=== PATIENT | female | born 1975 | race Caucasian/White ===

== ENCOUNTER → 2016-07-26 22:09 | Emergency (ER) | payer MEDICAID ==
[~2016-07-26] VITALS: Ht 157.5 cm; Wt 49.0 kg
[~2016-07-26 22:09] MED LIST: IBUP-232 PO; PERC5TAB12 PO; ROBA750T PO
[2016-07-26 22:12] VITALS: BP 141/89; PULSE 84; RESP 16; TEMP 97.7; O2SAT 99
== END | disposition left against medical advice (07) ==
LOC: NED 22:09
DX: R51 Headache (principal)
CPT/HCPCS: 99281

== ENCOUNTER 2016-07-26 22:49 | Emergency (ER) | payer MEDICAID ==
[~2016-07-26] VITALS: Ht 157.5 cm; Wt 46.6 kg
[~2016-07-26 22:49] MED LIST changes: -IBUP-232 PO; -ROBA750T PO
[2016-07-26 23:02] VITALS: BP 122/89; PULSE 72; RESP 16; TEMP 97.7; O2SAT 99
[2016-07-27] MEDS ORDERED: SODIUM CHLORIDE 0.9% FLUSH 10 ML FLUSH IVF PRN (00:15)
[2016-07-27 00:22] VITALS: RESP 18; O2SAT 97
[2016-07-27 00:26] LABS: AUTOMATED NEUTROPHIL # 5.1 TH/MM3 (1.8-7.7); BASOPHIL # 0.1 TH/MM3 (0-0.2); BASOPHIL % 0.9 % (0.0-2.0); EOSINOPHIL # 0.4 TH/MM3 (0-0.4); EOSINOPHIL % 4.1 % (0.0-4.0); HEMATOCRIT 39.1 % (35.0-46.0); HEMO FLAGS DIFF FINAL; LYMPH % 34.7 % (9.0-44.0); LYMPHOCYTE # 3.3 TH/MM3 (1.0-4.8); MEAN CELL VOLUME 94.1 FL (80.0-100.0); MEAN CORPUSCULAR HEMOGLOBIN 31.6 PG (27.0-34.0); MEAN CORPUSCULAR HGB CONC 33.6 % (32.0-36.0); MONO % 5.4 % (0.0-8.0); NEUT % 54.9 % (16.0-70.0); PLATELET COUNT 266 TH/MM3 (150-450); RED BLOOD COUNT 4.15 MIL/MM3 (4.00-5.30); RED CELL DISTRIBUTION WIDTH 13.4 % (11.6-17.2); WHITE BLOOD COUNT 9.4 TH/MM3 (4.0-11.0)
[2016-07-27 00:37] LABS: CHLORIDE 105 MEQ/L (98-107); POTASSIUM 3.5 MEQ/L (3.5-5.1); SODIUM (NA) 143 MEQ/L (136-145)
[2016-07-27 00:41] LABS: ANION GAP 6 MEQ/L (5-15); BICARBONATE 31.8 MEQ/L (21.0-32.0); BLOOD UREA NITROGEN 9 MG/DL (7-18)
[2016-07-27 00:44] LABS: ALT (GPT) 21 U/L (10-53); AST (GOT) 13 U/L (15-37); GLOMERULAR FILTRATION RATE 76 ML/MIN (>89)
[2016-07-27 00:45] LABS: TOTAL BILIRUBIN ADULT 0.3 MG/DL (0.2-1.0)
[2016-07-27 00:46] LABS: ALKALINE PHOSPHATASE 48 U/L (45-117)
--- NOTE | 2016-07-27 01:08 | RADHPO ---
EXAM DATE/TIME: 07/27/2016 00:46 [facility] COMPARISON: No previous studies available for comparison. INDICATIONS : Headache. RADIATION DOSE: 59.85 CTDIvol (mGy) MEDICAL HISTORY : None SURGICAL HISTORY : Hysterectomy. ENCOUNTER: Initial ACUITY: 1 day PAIN SCALE: 6/10 LOCATION: cranial TECHNIQUE: Multiple contiguous axial images were obtained of the head. Using automated exposure control and adj ustment of the mA and/or kV according to patient size, radiation dose was kept as low as reasonably a chievable to obtain optimal diagnostic quality images. FINDINGS: CEREBRUM: The ventricles are normal for age. No evidence of midline shift, mass lesion, hemorrhage or acute in farction. No extra-axial fluid collections are seen. POSTERIOR FOSSA: The cerebellum and brainstem are intact. The 4th ventricle is midline. The cerebellopontine angle i s unremarkable. EXTRACRANIAL: The visualized portion of the orbits is intact. SKULL: The calvaria is intact. No evidence of skull fracture. CONCLUSION: Normal examination for a patient of this age. Elvis Reeves MD on July 27, 2016 at 1:05 Board Certified Radiologist. This report was verified electronically.
[2016-07-27] MEDS ORDERED: KETOROLAC TROMETHAMINE 30 MG/ML (IVP) VIAL IV PUSH ONE (01:30)
[2016-07-27] MEDS ORDERED: ONDANSETRON HCL 4 MG/2 ML VIAL IV PUSH ONE (01:30)
[2016-07-27] MEDS ORDERED: ROBA750T PO (01:56)
[2016-07-27] MEDS ORDERED: IBUP-232 PO (01:56)
--- NOTE | 2016-07-27 01:57 | PD ---
HPI Chief Complaint: Headache Time Seen by Provider: 00:04 Travel History International Travel<30 days: No Contact w/Intl Traveler<30days: No Traveled to known affect area: No History of Present Illness HPI 40-year-old female presents to the emergency department by private transportation the care of [facility] for headache for greater than one to 2 months. Patient states headache is right-sided and scalp is tender to the area. Patient does not report history of headaches. Patient denies injury or trauma. No fever or chills. Patient states her last few days the right side of the scalp is tender and feels swollen to her. Patient denies fever or chills and has not noticed any lymph node swelling. No ear pain no sinus pressure drainage. Patient occasionally notes some neck discomfort with range of motion. No upper or lower extremity numbness tingling or weakness. Patient has had no skin rash. Patient denies any chronic medical problems. Patient occasionally has noted over the past several months some weakness in her legs. Patient denies any leg weakness at this time. Patient's had no upper extremity weakness and denies any numbness or tingling of the upper or lower extremities. Patient's had no saddle anesthesia. Patient denies any bladder or bowel dysfunction. Patient's had no change in mentation no visual disturbance. Patient's had no balance disturbance. Patient takes no prescription medications on a daily basis. Patient does admit to alcohol use tobacco use and marijuana use. Headache pain is 7/10 intensity. Patient denies headache pain sudden onset thunderclap or worst ever. PFSH Past Medical History Narrative Medical Uterine fibroids ectopic tubal ligation on tobacco use, alcohol use, marijuana use; nursing notes reviewed Diminished Hearing: No Reproductive: Yes (HX OF FIBROID TUMORS) Immunizations Current: No Tetanus Vaccination: Unknown Influenza Vaccination: No ?: Not : 8 Para: 2 Miscarriage: 2 : 1 Ectopic : Yes (X3) Tubal Ligation: Yes Past Surgical History Gynecologic Surgery: Yes (BIOPSY TO CERVIX) Hysterectomy: Yes Social History Alcohol Use: Yes (4 beers daily) Tobacco Use: Yes (1 PPD) Substance Use: Yes (MARIJUANA OCCASIONALLY) Allergies-Medications (Allergen,Severity, Reaction): Coded Allergies: No Known Allergies (Unverified , 07/26/16) Reported Meds & Prescriptions Reported Meds & Active Scripts Active Ibuprofen 600 Mg Tab 600 Mg PO Q6H PRN Robaxin (Methocarbamol) 750 Mg Tab 750 Mg PO Q6HR Review of Systems Except as stated in HPI: all other systems reviewed are Neg General / Constitutional: No: Fever, Chills Eyes: No: Diploplia, Blurred Vision, Photophobia HENT: Positive: Headaches, No: Vertigo, Lightheadedness, Neck Stiffness, Neck Pain Cardiovascular: No: Chest Pain or Discomfort Respiratory: No: Shortness of Breath Gastrointestinal: No: Nausea, Vomiting, Abdominal Pain Genitourinary: No: Dysuria, Flank Pain Musculoskeletal: No: Myalgias, Arthralgias Skin: No Rash Neurologic: No: Weakness, Dizziness, Syncope Psychiatric: No: Anxiety Endocrine: No: Heat Intolerance Hematologic/Lymphatic: No: Easy Bruising Physical Exam Narrative GENERAL: Well-developed well-nourished female in no acute distress no respiratory distress SKIN: Warm and dry. HEAD: Atraumatic. Normocephalic. EYES: Pupils equal and round. Funduscopic exam no papilledema. No scleral icterus. No injection or drainage. ENT: No nasal bleeding or discharge. Mucous membranes pink and moist. NECK: Trachea midline. No JVD. Supple no nuchal rigidity no meningismus. CARDIOVASCULAR: Regular rate and rhythm. RESPIRATORY: No accessory muscle use. Clear to auscultation. Breath sounds equal bilaterally. GASTROINTESTINAL: Abdomen soft, non-tender, nondistended. Hepatic and splenic margins not palpable. MUSCULOSKELETAL: Extremities without clubbing, cyanosis, or edema. No obvious deformities. NEUROLOGICAL: Awake and alert. No obvious cranial nerve deficits. Motor grossly within normal limits. Five out of 5 muscle strength in the arms and legs. No pronator drift. No limb ataxia. Sensory exam intact. Normal speech. PSYCHIATRIC: Appropriate mood and affect; insight and judgment normal. Data Data Last Documented VS Vital Signs Date Time Temp Pulse Resp B/P Pulse Ox O2 Delivery O2 Flow Rate FiO2 07/27/16 02:17 74 18 99 07/27/16 02:16 118/78 Room Air 07/26/16 23:02 97.7 Orders Complete Blood Count With Diff (07/27/16 00:04) Westergren Sedimentation Rate (07/27/16 00:04) Ct Brain W/O Iv Contrast(Rout) (07/27/16 00:04) Ecg Monitoring (07/27/16 00:04) Iv Access Insert/Monitor (07/27/16 00:04) Oximetry (07/27/16 00:04) Sodium Chloride 0.9% Flush (Ns Flush) (07/27/16 00:15) Ed Urine Pregnancytest Poc (07/27/16 00:04) Comprehensive Metabolic Panel (07/27/16 00:04) Ketorolac Inj (Toradol Inj) (07/27/16 01:30) Ondansetron Inj (Zofran Inj) (07/27/16 01:30) Labs Laboratory Tests Test 07/27/16 00:15 White Blood Count 9.4 TH/MM3 Red Blood Count 4.15 MIL/MM3 Hemoglobin 13.1 GM/DL Hematocrit 39.1 % Mean Corpuscular Volume 94.1 FL Mean Corpuscular Hemoglobin 31.6 PG Mean Corpuscular Hemoglobin 33.6 % Concent Red Cell Distribution Width 13.4 % Platelet Count 266 TH/MM3 Mean Platelet Volume 8.7 FL Neutrophils (%) (Auto) 54.9 % Lymphocytes (%) (Auto) 34.7 % Monocytes (%) (Auto) 5.4 % Eosinophils (%) (Auto) 4.1 % Basophils (%) (Auto) 0.9 % Neutrophils # (Auto) 5.1 TH/MM3 Lymphocytes # (Auto) 3.3 TH/MM3 Monocytes # (Auto) 0.5 TH/MM3 Eosinophils # (Auto) 0.4 TH/MM3 Basophils # (Auto) 0.1 TH/MM3 CBC Comment DIFF FINAL Differential Comment Erythrocyte Sedimentation Rate 5 mm/hr Sodium Level 143 MEQ/L Potassium Level 3.5 MEQ/L Chloride Level 105 MEQ/L Carbon Dioxide Level 31.8 MEQ/L Anion Gap 6 MEQ/L Blood Urea Nitrogen 9 MG/DL Creatinine 0.83 MG/DL Estimat Glomerular Filtration 76 ML/MIN Rate Random Glucose 107 MG/DL Calcium Level 8.5 MG/DL Total Bilirubin 0.3 MG/DL Aspartate Amino Transf 13 U/L (AST/SGOT) Alanine Aminotransferase 21 U/L (ALT/SGPT) Alkaline Phosphatase 48 U/L Total Protein 6.7 GM/DL Albumin 3.5 GM/DL MDM Medical Decision Making Medical Screen Exam Complete: Yes Emergency Medical Condition: Yes Medical Record Reviewed: Yes Interpretation(s) Last Impressions Head CT 07/27/16 0004 Signed Impressions: Service Date/Time: Wednesday, July 27, 2016 00:46 - CONCLUSION: Normal examination for a patient of this age. Elvis Reeves MD CBC & BMP Diagram 07/27/16 00:15 Vital Signs Date Time Temp Pulse Resp B/P Pulse Ox O2 Delivery O2 Flow Rate FiO2 07/27/16 00:22 18 97 Room Air 07/26/16 23:02 97.7 72 16 122/89 99 Sedimentation rate: 5, not elevated Differential Diagnosis Cephalgia, tension headache versus vascular versus inflammatory versus infectious versus bleed versus mass; multiple sclerosis; viral syndrome, musculoskeletal pain, scalp injury, cellulitis, shingles Narrative Course Specimens collected and sent for resulting CT brain noncontrast ordered and resulted as Patient given Toradol 30 mg IV with symptomatic improvement Patient clinically stable for outpatient management encouraged to follow-up with her primary care provider Diagnosis Primary Impression: Headache Qualified Code: G44.209 - Tension-type headache, not intractable, unspecified chronicity pattern Additional Impression: Scalp pain Referrals: [facility] call for appointment Patient Instructions: General Instructions Additional Instructions: Follow-up with primary care provider Return to the emergency department for any concerns or change in condition Take medication as prescribed as needed for pain associated inflammation or for muscle spasm Med/Other Pt SpecificInfo: Prescription(s) given Scripts Ibuprofen 600 Mg [id number] Mg PO Q6H PRN (PAIN GREATER THAN 5) #10 TAB Ref 0 Prov:Cristina Burns MD 07/27/16 Methocarbamol (Robaxin)750 Mg [id number] Mg PO Q6HR #12 TAB Ref 0 Prov:Cristina Burns MD 07/27/16 Disposition: 01 DISCHARGE HOME Condition: Stable Cristina Burns MD July 27, 2016 01:57
[2016-07-27 02:16] VITALS: BP 118/78; PULSE 74; RESP 18; O2SAT 99
== END 2016-07-27 02:18 | disposition home or self-care (01) ==
LOC: PHED 22:49
DX: R51 Headache (principal); F12.90 Cannabis use, unspecified, uncomplicated; F17.210 Nicotine dependence, cigarettes, uncomplicated
CPT/HCPCS: 70450; 80053; 85025; 85652; 96374; 96375; 99284; J1885; J2405

== ENCOUNTER 2016-12-06 03:44 | Emergency (ER) | payer MEDICAID ==
[~2016-12-06] VITALS: Ht 157.5 cm; Wt 47.0 kg
[~2016-12-06 03:44] MED LIST changes: +IBUP-232 PO; -PERC5TAB12 PO; +ROBA750T PO
[2016-12-06] MEDS ORDERED: IOHEXOL 350 MG/ML 10 ML VIAL (for RAD DIAG) IVCONTRAST ONE (03:45)
[2016-12-06 03:46] VITALS: BP 136/73; PULSE 92; RESP 16; TEMP 98.3; O2SAT 99
--- NOTE | 2016-12-06 04:12 | PD ---
HPI Chief Complaint: Fall Time Seen by Provider: 03:59 Travel History International Travel<30 days: No Contact w/Intl Traveler<30days: No Traveled to known affect area: No History of Present Illness HPI The patient is a 41 year old female who presents to the [facility] emergency department with a history of history of falling off of ladder when she was 10ft up 2 days ago. She was placing a tarp on a roof that was damaged in the [facility]. She hit her left side of her posterior back. She has posterior rib pain on the left side. She denies having any chest pain. She has developed generalized abdominal pain that began today. She denies vomiting or diarrhea. Her last BM was yesterday. No blood in her stool. She denies any fevers. She has been taking Goody's powders for pain, however they have not been helping. On review of systems, the patient denies having any cough, congestion, neck pain, urinary symptoms, or neurologic symptoms. PFSH Past Medical History Narrative Medical The patient's past medical history is reportedly none. Diminished Hearing: No Reproductive: Yes (HX OF FIBROID TUMORS) Immunizations Current: No ?: Not : 8 Para: 2 Miscarriage: 2 : 1 Ectopic : Yes (X3) Tubal Ligation: Yes Past Surgical History Narrative Surgical The patient's past surgical history is reportedly significant for a hysterectomy for fibroids, two ectopic pregnancies with tube resections, esophageal dilation. Gynecologic Surgery: Yes (BIOPSY TO CERVIX) Hysterectomy: Yes Social History Alcohol Use: Yes (rarely, 1 x q 6 months) Tobacco Use: Yes (1 PPD) Substance Use: Yes (MARIJUANA OCCASIONALLY) Allergies-Medications (Allergen,Severity, Reaction): Coded Allergies: No Known Allergies (Unverified , 12/06/16) Reported Meds & Prescriptions Reported Meds & Active Scripts Active Flexeril (Cyclobenzaprine HCl) 5 Mg Tab 5 Mg PO TID PRN Ibuprofen 600 Mg Tab 600 Mg PO Q8H PRN Lortab (Hydrocodone-Acetaminophen) 5-325 Mg Tab 1 Tab PO Q6H PRN Narrative Medication Goodys powders. Review of Systems Except as stated in HPI: all other systems reviewed are Neg General / Constitutional: No: Fever Eyes: No: Visual changes HENT: No: Headaches Cardiovascular: No: Chest Pain or Discomfort Respiratory: Positive: Shortness of Breath Gastrointestinal: Positive: Abdominal Pain, No: Nausea, Vomiting, Diarrhea Genitourinary: No: Dysuria Musculoskeletal: Positive: Myalgias, Arthralgias, Pain Skin: No Rash Neurologic: No: Weakness Psychiatric: No: Depression Endocrine: No: Polydipsia Hematologic/Lymphatic: No: Easy Bruising Physical Exam Narrative General: The patient is a well-developed well-nourished female, uncomfortable appearing on examination, however otherwise in no acute distress, O2 saturations on room air on arrival are 98%. Head and Neck exam: Head is normocephalic atraumatic. Eyes: EOMI, pupils are equal round and reactive to light. Nose: Midline septum with pink mucous membranes Mouth: Dentition unremarkable. Moist mucus membranes. Posterior oropharynx is not erythematous. No tonsillar hypertrophy. Uvula midline. Airway patent. Neck: No palpable lymphadenopathy. No nuchal rigidity. No thyromegaly. No spinous process tenderness to palpation. No step-off or crepitus. No erythema or ecchymosis. Cardiovascular: Regular rate and rhythm without murmurs, gallops, or rubs. Lungs: Clear to auscultation bilaterally. No wheezes, rhonchi, or rales. The patient on examination of the posterior chest wall below the scapula is noted to have tenderness on palpation without any crepitus or step-off. No erythema or ecchymosis. Abdomen: Soft, with tenderness on palpation along bilateral upper quadrants of the abdomen and midepigastric area no other tenderness on palpation of the other quadrants of the abdomen.. No guarding, rebound, or rigidity. Normal bowel sounds are audible. No tenderness on palpation of McBurney's point. Negative Stein's sign. Extremities: No clubbing, cyanosis, or edema. 2+ pulses in all 4 extremities. No calf tenderness on palpation. No extremity deformity or crepitus or pain with range of motion of her upper and lower extremities. Back: No spinous process tenderness to palpation. No costovertebral angle tenderness to palpation. No erythema or ecchymosis. Neurologic Exam: Grossly nonfocal. Skin Exam: No rash noted. Intact skin that is warm and dry. Data Data Last Documented VS Vital Signs Date Time Temp Pulse Resp B/P (MAP) Pulse Ox O2 Delivery O2 Flow Rate FiO2 9/28/17 04:34 63 16 100 Nasal Cannula 2.00 12/06/16 03:46 98.3 Orders Orders Chest, Single Ap (12/06/16 ) Complete Blood Count With Diff (12/06/16 04:15) Comprehensive Metabolic Panel (12/06/16 04:15) Lipase (12/06/16 04:15) Ct Abd/Pel W Iv Contrast(Rout) (12/06/16 04:15) Iv Access Insert/Monitor (12/06/16 04:15) Ecg Monitoring (12/06/16 04:15) Oximetry (12/06/16 04:15) Sodium Chlor 0.9% 1000 Ml Inj (Ns 1000 M (12/06/16 04:15) Ondansetron Inj (Zofran Inj) (12/06/16 04:15) Ketorolac Inj (Toradol Inj) (12/06/16 04:15) Iohexol 350 Inj (Omnipaque 350 Inj) (12/06/16 03:45) Labs Laboratory Tests Test 12/06/16 04:30 White Blood Count 10.4 TH/MM3 Red Blood Count 4.21 MIL/MM3 Hemoglobin 13.6 GM/DL Hematocrit 40.2 % Mean Corpuscular Volume 95.4 FL Mean Corpuscular Hemoglobin 32.2 PG Mean Corpuscular Hemoglobin Concent 33.8 % Red Cell Distribution Width 12.9 % Platelet Count 237 TH/MM3 Mean Platelet Volume 9.4 FL Neutrophils (%) (Auto) 52.2 % Lymphocytes (%) (Auto) 34.7 % Monocytes (%) (Auto) 7.0 % Eosinophils (%) (Auto) 5.5 % Basophils (%) (Auto) 0.6 % Neutrophils # (Auto) 5.4 TH/MM3 Lymphocytes # (Auto) 3.6 TH/MM3 Monocytes # (Auto) 0.7 TH/MM3 Eosinophils # (Auto) 0.6 TH/MM3 Basophils # (Auto) 0.1 TH/MM3 CBC Comment DIFF FINAL Differential Comment Blood Urea Nitrogen 14 MG/DL Creatinine 0.86 MG/DL Random Glucose 97 MG/DL Total Protein 7.3 GM/DL Albumin 3.6 GM/DL Calcium Level 8.3 MG/DL Alkaline Phosphatase 52 U/L Aspartate Amino Transf (AST/SGOT) 9 U/L Alanine Aminotransferase (ALT/SGPT) 11 U/L Total Bilirubin 0.2 MG/DL Sodium Level 141 MEQ/L Potassium Level 3.5 MEQ/L Chloride Level 107 MEQ/L Carbon Dioxide Level 30.7 MEQ/L Anion Gap 3 MEQ/L Estimat Glomerular Filtration Rate 73 ML/MIN Lipase 96 U/L [facility] Medical Decision Making Medical Screen Exam Complete: Yes Emergency Medical Condition: Yes Medical Record Reviewed: Yes Interpretation(s) Last Impressions Abdomen/Pelvis CT 12/06/16 0415 Signed Impressions: Service Date/Time: November 04:43 - CONCLUSION: 1. There are several lower left posterior rib fractures with small left effusion and left basilar atelectasis. No pneumothorax. 2. No solid visceral injury within the abdomen. No free air or free fluid. Elvis Reeves MD Chest X-Ray 12/06/16 0000 Signed Impressions: Service Date/Time: November 04:18 - CONCLUSION: 1. Linear atelectasis at the lung bases. No effusion. No pneumothorax. Elvis Reeves MD Differential Diagnosis Rib fractures, versus splenic trauma, versus hepatic trauma, versus pneumothorax , versus hemothorax Narrative Course During the course of the patients emergency department visit, the patients history, examination, and differential diagnosis were reviewed with the patient. The patient had IV access obtained and blood work sent for analysis. The patient was placed on a cardiac cath rn with oximetry and blood pressure monitoring. A chest x-ray was ordered. CT scan of the abdomen and pelvis was ordered. The patient was initially provided normal saline a 1 L IV fluid bolus, Zofran 4 mg IV, Toradol 15 mg IV. The patients laboratory studies were reviewed and remarkable for a white count of 10.4, hemoglobin 13.6, platelets 237 with 5.5 eosinophils, CMP is remarkable for an anion gap of 3, GFR 73, calcium 8.3, AST 9, lipase 96. Radiology studies were reviewed and remarkable for a chest x-ray that shows linear atelectasis at the lung bases, no effusion, no pneumothorax. CT scan of the abdomen and pelvis shows that there are several lower left posterior rib fractures with small left effusion and left basilar atelectasis. No pneumothorax. No solid visceral injury within the abdomen. No free air or free fluid. The patient will be discharged home with a prescription for Flexeril, ibuprofen , and Lortab. The patient is instructed to push fluids and get plenty of rest. The patient is instructed to do activity as tolerated and follow-up with a primary care physician for reexamination in 2 days. The patient is resting comfortably and feels better, is alert and in no distress. The patients results and examination findings were discussed with the patient. The repeat examination is unremarkable and benign. The history, exam, diagnostic testing, and current condition do not suggest any significant pathology to warrant further testing, continued ED treatment, admission, or surgical evaluation at this point. The vital signs have been stable. The patient does not have uncontrollable pain, intractable vomiting, or other significant symptoms. The patient's condition is stable and appropriate for discharge. The patient will pursue further outpatient evaluation with a primary care physician or other designated or consulting physician as indicated in the discharge instructions. The patient expressed understanding and was agreeable with this plan. Diagnosis Primary Impression: Multiple fractures of ribs, left side, initial encounter for closed fracture Referrals: Primary Care Physician 2 days Patient Instructions: General Instructions, Rib Fracture (ED) Med/Other Pt SpecificInfo: Prescription(s) given Scripts Cyclobenzaprine (Flexeril) 5 Mg Tab 5 MG PO TID Y for SPASM, #12 TAB 0 Refills Prov: Amparo Gao MD 12/06/16 Ibuprofen (Ibuprofen) 600 Mg Tab 600 MG PO Q8H Y for PAIN, #12 TAB 0 Refills Prov: Amparo Gao MD 12/06/16 Hydrocodone-Acetaminophen (Lortab) 5-325 Mg Tab 1 TAB PO Q6H Y for PAIN, #16 TAB 0 Refills Prov: Amparo Gao MD 12/06/16 Disposition: 01 DISCHARGE HOME Condition: Stable Amparo Gao MD Dec 06, 2016 04:12
[2016-12-06] MEDS ORDERED: KETOROLAC TROMETHAMINE 30 MG/ML (IVP) VIAL IV PUSH ONE (04:15)
[2016-12-06] MEDS ORDERED: ONDANSETRON HCL 4 MG/2 ML VIAL IV ONE (04:15)
[2016-12-06] MEDS ORDERED: SODIUM CHLOR 0.9% 1000 ML INJ 1,000 ML IV ONE (04:15)
[2016-12-06 04:34] VITALS: PULSE 63; RESP 16; O2SAT 100
--- NOTE | 2016-12-06 04:44 | RADRPT ---
EXAM DATE/TIME: 12/06/2016 04:18 [facility] COMPARISON: No previous studies available for comparison. INDICATIONS : Short of breath. MEDICAL HISTORY : None. SURGICAL HISTORY : Hysterectomy. ENCOUNTER: Initial ACUITY: 1 day PAIN SCORE: 0/10 LOCATION: Bilateral chest FINDINGS: A single view of the chest demonstrates the lungs to be symmetrically aerated without evidence of mas s, infiltrate or effusion. There is linear atelectasis at the lung bases. The cardiomediastinal conto urs are unremarkable. Osseous structures are intact. CONCLUSION: 1. Linear atelectasis at the lung bases. No effusion. No pneumothorax. Elvis Reeves MD on December 06, 2016 at 4:42 Board Certified Radiologist. This report was verified electronically.
[2016-12-06 04:53] LABS: AUTOMATED NEUTROPHIL # 5.4 TH/MM3 (1.8-7.7); BASOPHIL # 0.1 TH/MM3 (0-0.2); BASOPHIL % 0.6 % (0.0-2.0); EOSINOPHIL # 0.6 TH/MM3 (0-0.4); EOSINOPHIL % 5.5 % (0.0-4.0); HEMATOCRIT 40.2 % (35.0-46.0); HEMO FLAGS DIFF FINAL; LYMPH % 34.7 % (9.0-44.0); LYMPHOCYTE # 3.6 TH/MM3 (1.0-4.8); MEAN CELL VOLUME 95.4 FL (80.0-100.0); MEAN CORPUSCULAR HEMOGLOBIN 32.2 PG (27.0-34.0); MEAN CORPUSCULAR HGB CONC 33.8 % (32.0-36.0); NEUT % 52.2 % (16.0-70.0); PLATELET COUNT 237 TH/MM3 (150-450); RED BLOOD COUNT 4.21 MIL/MM3 (4.00-5.30); RED CELL DISTRIBUTION WIDTH 12.9 % (11.6-17.2); WHITE BLOOD COUNT 10.4 TH/MM3 (4.0-11.0)
[2016-12-06 05:00] LABS: ALT (GPT) 11 U/L (10-53); ANION GAP 3 MEQ/L (5-15); AST (GOT) 9 U/L (15-37); BICARBONATE 30.7 MEQ/L (21.0-32.0); BLOOD UREA NITROGEN 14 MG/DL (7-18); CHLORIDE 107 MEQ/L (98-107); GLOMERULAR FILTRATION RATE 73 ML/MIN (>89); POTASSIUM 3.5 MEQ/L (3.5-5.1); SODIUM (NA) 141 MEQ/L (136-145)
[2016-12-06 05:03] LABS: ALKALINE PHOSPHATASE 52 U/L (45-117); TOTAL BILIRUBIN ADULT 0.2 MG/DL (0.2-1.0)
--- NOTE | 2016-12-06 05:23 | RADRPT ---
EXAM DATE/TIME: 12/06/2016 04:43 [facility] COMPARISON: No previous studies available for comparison. INDICATIONS : Left sided rib pain from fall off ladder. IV CONTRAST: 100 cc Omnipaque 350 (iohexol) IV ORAL CONTRAST: No oral contrast ingested. RADIATION DOSE: 9.96 CTDIvol (mGy) MEDICAL HISTORY : None SURGICAL HISTORY : Hysterectomy. ENCOUNTER: Initial ACUITY: 2 days PAIN SCALE: 9/10 LOCATION: Left upper quadrant TECHNIQUE: Volumetric scanning of the abdomen and pelvis was performed. Using automated exposure control and ad justment of the mA and/or kV according to patient size, radiation dose was kept as low as reasonably achievable to obtain optimal diagnostic quality images. DICOM format image data is available electro nically for review and comparison. FINDINGS: There are several left posterior mildly displaced rib fractures with trace left pleural fluid and lef t basilar atelectasis. Right lung bases clear. No acute findings in the liver, spleen, adrenals, kidneys or pancreas. Small cyst lower pole left kid poly. Moderate constipation. No free air or free fluid. Probable Bartholin's gland cysts on the right measu ring just over a centimeter in diameter. CONCLUSION: 1. There are several lower left posterior rib fractures with small left effusion and left basilar ate lectasis. No pneumothorax. 2. No solid visceral injury within the abdomen. No free air or free fluid. Elvis Reeves MD on December 06, 2016 at 5:18 Board Certified Radiologist. This report was verified electronically.
[2016-12-06] MEDS ORDERED: HYDR-3533 PO (06:10)
[2016-12-06] MEDS ORDERED: IBUP-232 PO (06:10)
[2016-12-06] MEDS ORDERED: CYCL5TAB PO (06:10)
== END 2016-12-06 07:33 | disposition home or self-care (01) ==
LOC: NEPC 03:44
DX: S22.42XA Multiple fractures of ribs, left side, initial encounter for closed fracture (principal); J90 Pleural effusion, not elsewhere classified; J98.11 Atelectasis; F17.200 Nicotine dependence, unspecified, uncomplicated; W11.XXXA Fall on and from ladder, initial encounter; Y93.H9 Activity, other involving exterior property and land maintenance, building and construction
CPT/HCPCS: 71010; 74177; 80053; 83690; 85025; 96361; 96374; 96375; 99285; J1885; J2405; J7030; Q9967

== ENCOUNTER 2017-04-17 17:12 | Emergency (ER) | payer MEDICAID ==
[~2017-04-17] VITALS: Ht 157.5 cm; Wt 50.0 kg
[~2017-04-17 17:12] MED LIST changes: +CYCL5TAB PO; +HYDR-3533 PO; -ROBA750T PO
[2017-04-17 17:13] VITALS: BP 134/87; PULSE 95; RESP 18; TEMP 99; O2SAT 100
--- NOTE | 2017-04-17 18:08 | RADRPT ---
EXAM DATE/TIME: 04/17/2017 17:44 [facility] COMPARISON: CHEST SINGLE AP, December 06, 2016, 4:18. INDICATIONS : Chest pain. MEDICAL HISTORY : None. SURGICAL HISTORY : Hysterectomy. ENCOUNTER: Initial ACUITY: 1 day PAIN SCORE: 8/10 LOCATION: Bilateral chest FINDINGS: PA and lateral views of the chest demonstrate the lungs to be symmetrically aerated without evidence of mass, infiltrate or effusion. The cardiomediastinal contours are unremarkable. Osseous structure s are intact. CONCLUSION: No acute disease. J Carlos Hernández MD on April 17, 2017 at 18:05 Board Certified Radiologist. This report was verified electronically.
[2017-04-17 19:04] LABS: AUTOMATED NEUTROPHIL # 5.7 TH/MM3 (1.8-7.7); BASOPHIL # 0.1 TH/MM3 (0-0.2); BASOPHIL % 0.8 % (0.0-2.0); EOSINOPHIL # 0.1 TH/MM3 (0-0.4); HEMATOCRIT 41.2 % (35.0-46.0); HEMOGLOBIN 14.2 GM/DL (11.6-15.3); LYMPH % 31.8 % (9.0-44.0); MEAN CELL VOLUME 95.4 FL (80.0-100.0); MEAN CORPUSCULAR HGB CONC 34.6 % (32.0-36.0); MEAN PLATELET VOLUME 8.4 FL (7.0-11.0); MONOCYTE # 0.6 TH/MM3 (0-0.9); NEUT % 60.4 % (16.0-70.0); PLATELET COUNT 269 TH/MM3 (150-450); RED BLOOD COUNT 4.32 MIL/MM3 (4.00-5.30); RED CELL DISTRIBUTION WIDTH 13.7 % (11.6-17.2); WHITE BLOOD COUNT 9.4 TH/MM3 (4.0-11.0)
[2017-04-17 19:12] LABS: INTERNATIONAL NORMALIZED RATIO 1.1 RATIO; PROTHROMBIN TIME - PATIENT 10.8 SEC (9.8-11.6)
[2017-04-17 19:21] LABS: BICARBONATE 26.3 MEQ/L (21.0-32.0); BLOOD UREA NITROGEN 13 MG/DL (7-18); CALCIUM 9.3 MG/DL (8.5-10.1); CHLORIDE 105 MEQ/L (98-107); GLOMERULAR FILTRATION RATE 79 ML/MIN (>89); GLUCOSE,RANDOM 85 MG/DL (74-106); SODIUM (NA) 139 MEQ/L (136-145)
[2017-04-17 19:27] LABS: TROPONIN I LESS THAN 0.02 NG/ML (0.02-0.05)
--- NOTE | 2017-04-17 22:06 | PD ---
Physical Exam Date Seen by Provider: Apr 17, 2017 Time Seen by Provider: 21:45 Narrative 41-year-old female presents to the emergency department for evaluation of chest pain that radiates to left arm with heart palpitations that started yesterday. Current pain is 6/10. Data Data Last Documented VS Vital Signs Date Time Temp Pulse Resp B/P (MAP) Pulse Ox O2 Delivery O2 Flow Rate FiO2 04/17/17 17:13 99.0 95 18 134/87 (103) 100 Room Air Orders Orders Electrocardiogram (04/17/17 17:24) Basic Metabolic Panel (Bmp) (04/17/17 17:24) Ckmb (Isoenzyme) Profile (04/17/17 17:24) Complete Blood Count With Diff (04/17/17 17:24) Magnesium (Mg) (04/17/17 17:24) Prothrombin Time / Inr (Pt) (04/17/17 17:24) Act Partial Throm Time (Ptt) (04/17/17 17:24) Troponin I (04/17/17 17:24) Chest, Pa & Lat (04/17/17 17:24) Labs Laboratory Tests Test 04/17/17 18:20 White Blood Count 9.4 TH/MM3 Red Blood Count 4.32 MIL/MM3 Hemoglobin 14.2 GM/DL Hematocrit 41.2 % Mean Corpuscular Volume 95.4 FL Mean Corpuscular Hemoglobin 33.0 PG Mean Corpuscular Hemoglobin Concent 34.6 % Red Cell Distribution Width 13.7 % Platelet Count 269 TH/MM3 Mean Platelet Volume 8.4 FL Neutrophils (%) (Auto) 60.4 % Lymphocytes (%) (Auto) 31.8 % Monocytes (%) (Auto) 6.0 % Eosinophils (%) (Auto) 1.0 % Basophils (%) (Auto) 0.8 % Neutrophils # (Auto) 5.7 TH/MM3 Lymphocytes # (Auto) 3.0 TH/MM3 Monocytes # (Auto) 0.6 TH/MM3 Eosinophils # (Auto) 0.1 TH/MM3 Basophils # (Auto) 0.1 TH/MM3 CBC Comment DIFF FINAL Differential Comment Prothrombin Time 10.8 SEC Prothromb Time International Ratio 1.1 RATIO Activated Partial Thromboplast Time 26.4 SEC Blood Urea Nitrogen 13 MG/DL Creatinine 0.80 MG/DL Random Glucose 85 MG/DL Calcium Level 9.3 MG/DL Magnesium Level 2.0 MG/DL Sodium Level 139 MEQ/L Potassium Level 3.3 MEQ/L Chloride Level 105 MEQ/L Carbon Dioxide Level 26.3 MEQ/L Anion Gap 8 MEQ/L Estimat Glomerular Filtration Rate 79 ML/MIN Total Creatine Kinase 76 U/L Troponin I LESS THAN 0.02 NG/ML MDM Supervised Visit with DEVYN: No Narrative Course 41-year-old female presents to the emergency department for evaluation of chest pain and palpitations that started yesterday. Patient is initially seen in triage and workup is initiated. Patient left AGAINST MEDICAL ADVICE before she could be moved to medical bed. Diagnosis Primary Impression: Left against medical advice Disposition: 07 AGAINST MEDICAL ADVICE Kym Rojas Apr 17, 2017 22:06
--- NOTE | 2017-04-18 20:19 | EKG ---
Date Performed: 04/17/2017 Time Performed: 18:25:39 PTAGE: 41 years EKG: Sinus rhythm NORMAL ECG NO PREVIOUS TRACING DOCTOR: Valeriano Ogden Interpretating Date/Time 04/18/2017 20:15:12
== END 2017-04-17 22:11 | disposition left against medical advice (07) ==
LOC: NED 17:12
DX: R07.9 Chest pain, unspecified (principal); Z53.21 Procedure and treatment not carried out due to patient leaving prior to being seen by health care provider
CPT/HCPCS: 71046; 80048; 82550; 83735; 84484; 85025; 85610; 85730; 93005; 99284

== ENCOUNTER 2017-08-31 04:29 | Emergency (ER) | payer MEDICAID ==
[~2017-08-31] VITALS: Ht 157.5 cm; Wt 45.5 kg
[2017-08-31 04:34] VITALS: BP 127/78; PULSE 78; RESP 16; TEMP 98.4; O2SAT 99
--- NOTE | 2017-08-31 05:23 | PD ---
HPI Chief Complaint: Musculoskeletal Complaint Time Seen by Provider: 05:12 Travel History International Travel<30 days: No Contact w/Intl Traveler<30days: No Traveled to known affect area: No History of Present Illness HPI 42-year-old white female presents emergency department complains of bilateral shoulder and left wrist pain. 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 She has had pain in her shoulders for quite some time. She states that it actually has started more in her right shoulder that has progressed over to her left shoulder. Her right shoulder does not hurt her nearly as bad now. She also complains of pain in the left wrist. Moderate in intensity. Worse with movement. She states that it feels more comfortable holding her arms against her body. She denies any focal numbness, tingling or weakness. No trauma. No neck or back pain. History Past Medical Histgory Medical History: Denies Significant Hx Tetanus Vaccination: > 5 Years LMP: 3 YEARS AGO Past Surgical History Surgical History: No Previous Surgery Social History Alcohol Use: Yes (rarely,) Tobacco Use: Yes (1 PPD) Allergies-Medications (Allergen,Severity, Reaction): Coded Allergies: No Known Allergies (Unverified , 12/06/16) Reported Meds & Prescriptions Reported Meds & Active Scripts Active No Active Prescriptions or Reported Medications Review of Systems General / Constitutional: No: Fever Eyes: No: Visual changes HENT: No: Headaches Cardiovascular: No: Chest Pain or Discomfort Respiratory: No: Shortness of Breath Gastrointestinal: No: Abdominal Pain Genitourinary: No: Dysuria Musculoskeletal: Positive: Arthralgias, Limited ROM, Edema, Pain, No: Myalgias , Weakness, Cramping Skin: No Rash Neurologic: No: Weakness Psychiatric: No: Depression Endocrine: No: Polydipsia Hematologic/Lymphatic: No: Easy Bruising Physical Exam Narrative GENERAL: This is a well-nourished, well-developed patient, in no apparent distress. SKIN: No rashes, ecchymoses or lesions. Warm and dry. HEAD: Atraumatic. Normocephalic. EYES: PERRL, EOMI, no discharge or injection. No scleral icterus. EARS: Clear NOSE: Nasal turbinates appear normal. THROAT: Mucosa pink and moist. Airway patent. NECK: Trachea midline. supple, moves head freely. LUNGS: Clear to auscultation. CV: Regular in rhythm. ABDOMEN: Soft nontender. EXT: Examination the left upper extremity reveals pain in the glenohumeral joint. There is no erythema or warmth. No crepitus. She has negative drop test. Positive apprehension test. Decreased range of motion due to pain. No pain in the elbow. No pain in the hand. She does complain of pain diffusely in the wrist more so over the radial aspect. She has full range of motion of the wrist. Intact median/ulnar/radial nerves. No anatomical snuffbox pain. The right upper extremity is unremarkable. There is no localizing bony tenderness or deformity. Lower extremities unremarkable. Data Data Last Documented VS Vital Signs Date Time Temp Pulse Resp B/P (MAP) Pulse Ox O2 Delivery O2 Flow Rate FiO2 08/31/17 04:34 98.4 78 16 127/78 (94) 99 MDM Medical Screen Exam Complete: Yes Emergency Medical Condition: No Differential Diagnosis MDM: High Differential diagnoses: Fracture, sprain, strain, dislocation, contusion, neurovascular injury Narrative Course A medical screening exam was performed: At the time of evaluation the presenting medical condition was determined not to be of an emergent nature. The patient was given the option of receiving additional care, but declined. Patient was given options for additional community resources from which to obtain care. The Patient Has Been advised to seek medical attention for their presenting complaint. The patient has been advised to return to the ER at any time if an emergent condition develops. Primary Impression: Encounter for medical screening examination Additional Impression: Medical screening Scripts No Active Prescriptions or Reported Meds Condition: Stable Elvis Block Aug 31, 2017 05:23
== END 2017-08-31 05:31 | disposition left against medical advice (07) ==
LOC: NEPD 04:29
DX: M25.532 Pain in left wrist (principal)
CPT/HCPCS: 99281